=== PATIENT | male | born 1975 | race Caucasian/White ===

== ENCOUNTER 2017-05-07 12:47 | Emergency (ER) | payer OTHER ==
[2017-05-07 13:21] VITALS: BP 136/85
--- NOTE | 2017-05-07 14:10 | ED Physician Documentation ---
Upper Extremity Injury - HISTORIAN Historian: patient - HPI Stated Complaint: left wrist pain Chief Complaint: Upper Extremity Injury (left wrist pain post fall) Onset: yesterday Where: home Severity: moderate Duration: worse Context: fall Associated Symptoms: denies: tingling, numbness distally, feeling loss Modifying Factors: pain on movement - ROS CONST: no problems - PAST HX Past History: Rt handed Allergies/Adverse Reactions: Allergies Allergy/AdvReac Type Severity Reaction Status Date / Time No Known Drug Allergies Allergy Unverified 05/07/17 13:21 Home Medications: Ambulatory Orders Medication Instructions Recorded Tramadol HCl [Ultram] 50 mg PO Q4 PRN #15 tablet 05/07/17 - SOCIAL HX Smoking History: less than 1 pack/day Alcohol Use: rarely Drug Use: none - FAMILY HX Family History: no significant history - VITAL SIGNS Vital Signs: Vital Signs Temp Pulse Resp BP Pulse Ox 97.8 F 86 20 136/85 97 05/07/17 12:48 05/07/17 12:48 05/07/17 12:48 05/07/17 12:48 05/07/17 12:48 - REVIEWED ASSESSMENTS Nursing Assessment Reviewed: Yes Vitals Reviewed: Yes ED Results Lab/Radiology - Orders Orders: ED Orders Category Date Time Status WRIST 3 VIEWS OR MORE [RAD] Stat Exams 05/07/17 Completed Upper Extremity Injury Physic - Physical Exam General Appearance: alert, mild distress Hand: normal inspection, non-tender, no evidence of injury, normal ROM Wrist: limited ROM (due to pain), pain, soft tissue tenderness (no bony abnl noted), swelling. No: deformity, ecchymosis Elbow/Forearm: normal inspection, non-tender, no evidence of injury, normal ROM Shoulder: normal inspection, non-tender, no evidence of injury, normal ROM Neuro/Vascular/Tendon: no vascular compromise, motor nml, sensation nml Skin: warm,dry Head/ENT: nml inspection, pharynx nml Neck/Back: nml inspection, non-tender Resp/CVS: chest non-tender, breath sounds nml, heart sounds nml, no resp. distress, lungs clear. No: wheezes, rales, rhonchi Abdomen: non-tender Discharge Clincal Impression: Contusion of wrist, left Prescriptions: Tramadol HCl [Ultram] 50 mg PO Q4 PRN #15 tablet PRN Reason: Pain Referrals: Stephenson,Sara, MD [Primary Care Provider] - 2 Days Additional Instructions: Keep wrist elevated with a cool compress, wear wrist splint as needed for comfort measures. Take Tylenol to help with the pain. Supplement with Tramadol as needed. Take Tramadol with food. Condition: Stable Disposition: 01 HOME, SELF-CARE Decision to Admit: NO Date of Decison to Admit: 05/07/17 Decision Time: 14:17
--- NOTE | 2017-05-07 15:06 | Diagnostic Imaging Report ---
[facility] [id number] [facility].[address] [address] Report Submission Date: May 07, 2017 2:08:17 PM CHIEF [employer]IST LEED Patient Study Name: CATHRYN JAIN Date: May 07, 2017 1:53:27 PM [employer]IE[employer]IST LEED Modality Type: CR Gender: M Description: UPPER EXTREMITY : 77 Institution: [facility] Physician: SERGEY BRUSH Examination: Plain film wrist History: Fall Comparison exams: None available Findings: 3 views the wrist demonstrate normal cortical margins. No fracture. No dislocation. No soft tissue abnormality. Impression: No acute osseous abnormality Electronically signed on May 07, 2017 2:08:17 PM CHIEF SPECIALIST LEED by: Duncan KATE
== END 2017-05-07 14:27 | disposition home or self-care (01) ==
LOC: ED 12:47
DX: S60.212A Contusion of left wrist, initial encounter (principal); X58.XXXA Exposure to other specified factors, initial encounter; Y93.9 Activity, unspecified; Y99.9 Unspecified external cause status
CPT/HCPCS: 73110; 99283